=== PATIENT | male | born 1930 | race Caucasian/White ===

== ENCOUNTER 2016-07-08 16:33 | Inpatient (IN) | payer OTHER ==
[~2016-07-08] VITALS: Ht 182.9 cm; Wt 74.8 kg
[2016-07-08] MEDS ORDERED: MORPHINE SULFATE 4 MG/ML SYRG IV ONE ×2 (19:15→21:45)
[2016-07-08] MEDS ORDERED: ONDANSETRON HCL 4 MG/2 ML VIAL IV ONE (19:15)
[2016-07-08 19:52] LABS: Albumin 3.8 g/dL (3.4-5.0); Anion Gap 9 (5-15); Aspartate Aminotransferase 20 U/L (15-37); BUN/Creatinine Ratio 24.3; Blood Urea Nitrogen 25 mg/dL (7-18); Calcium 8.7 mg/dL (8.5-10.1); Carbon Dioxide 25 mmol/L (21-32); Chloride 103 mmol/L (98-107); GFR African American 88 mL/min; GFR Non-African American 73 mL/min; Glucose 101 mg/dL (74-106); Potassium 3.6 mmol/L (3.5-5.1); Sodium 137 mmol/L (136-145)
[2016-07-08 19:56] LABS: Alkaline Phosphatase 67 U/L (45-117); Bilirubin, Total 0.4 mg/dL (0.2-1.0); Total Protein 7.5 g/dL (6.4-8.2)
[2016-07-08 20:12] LABS: B-Type Natriuretic Peptide 51.2 pg/mL (0-100); Temperature: 22.7 C (20.0-25.0); White Blood Cell 12.9 10^3/uL (4.4-10.8)
[2016-07-08 20:13] LABS: Basophils # (auto) 0 uL; Basophils % (auto) 0.3 % (0.0-2.0); Eosinophils # (auto) 0.3 uL; Eosinophils % (auto) 2.3 % (0.0-7.0); Hematocrit 48.9 % (41.0-53.0); Hemoglobin 15.9 g/dL (13.5-17.5); Lymphocytes # (auto) 1.6 uL; Lymphocytes % (auto) 12.7 % (10.0-50.0); Monocytes # (auto) 1.3 uL; Monocytes % (auto) 9.7 % (0.0-12.0); Neutrophils # (auto) 9.7 uL
[2016-07-08 20:14] LABS: Mean Corpuscular Hgb Conc. 32.5 g/dL (32.0-36.0); Mean Corpuscular Volume 82.8 fL (80.0-100.0); Mean Platelet Volume 7.7 fL (7.4-10.4); Platelet Count (auto) 505 10^3/uL (140-450); Red Cell Distribution Width 17.9 % (11.6-16.0)
[2016-07-08] MEDS ORDERED: IOHEXOL 350 MG/ML 100ML IJ ONE (21:14)
[2016-07-08] MEDS ORDERED: SODIUM CHLORIDE 0.9% 500 ML IV ONE (21:15)
[2016-07-09] MEDS ORDERED: SODIUM CHLORIDE 0.9% 1,000 ML IV SCH (03:35)
[2016-07-09] MEDS ORDERED: TEMAZEPAM 15 MG CAP PO PRN (03:45)
[2016-07-09] MEDS ORDERED: ACETAMINOPHEN 325 MG TAB PO PRN (03:45)
[2016-07-09] MEDS ORDERED: MORPHINE SULF INJ 2 MG/ML SYRINGE 1ML IV PRN (03:45)
[2016-07-09] MEDS ORDERED: NITROGLYCERIN 0.4 MG SL TAB SL PRN (03:45)
[2016-07-09] MEDS ORDERED: ONDANSETRON HCL 4 MG/2 ML VIAL IV PRN (03:45)
[2016-07-09] MEDS ORDERED: PIPERACILLIN-TAZOB 3.375GM 100 ML IV ONE (03:45)
[2016-07-09 04:26] LABS: INR 1.11 (0.9-1.15); Prothrombin Time 11.4 sec (9.37-12.3)
[2016-07-09] MEDS: MORPHINE SULF INJ 2 MG/ML SYRINGE 1ML IV PRN ×2 (06:57→12:21)
[2016-07-09] MEDS ORDERED: FAMOTIDINE 20 MG TAB PO SCH (10:00)
[2016-07-09] MEDS ORDERED: ASCORBIC ACID 500 MG TAB PO SCH (10:00)
[2016-07-09] MEDS ORDERED: ZINC SULFATE 220 MG CAP PO SCH (10:00)
[2016-07-09 12:20] VITALS: BP 113/36
== END 2016-07-10 00:05 | disposition short-term general hospital (02) | DRG 605 ==
LOC: ER 16:33 → TELE 16:34
PROVIDERS: ADMIT Emergency Medicine; ATTEND Emergency Medicine
DX: S20.219A Contusion of unspecified front wall of thorax, initial encounter (principal); S22.20XA Unspecified fracture of sternum, initial encounter for closed fracture; Y92.89 Other specified places as the place of occurrence of the external cause; E11.9 Type 2 diabetes mellitus without complications; K80.80 Other cholelithiasis without obstruction; Y93.E6 Activity, residential relocation; V43.52XA Car driver injured in collision with other type car in traffic accident, initial encounter
CPT/HCPCS: 36415; 71020; 71275; 80053; 82962; 83880; 84484; 85025; 85379; 85610; 86850; 86900; 86901; 87040; 93005; 93970; 96365; 96375; 96376; J2405; J2543